=== PATIENT | female | born 1960 | race American Indian/Alaskan Native ===

== ENCOUNTER 2024-07-17 09:10 | Outpatient (CLI) | payer MEDICAID ==
[~2024-07-17 09:10] MED LIST: DIPH25CA83 PO; METH4TAB81 PO; PRED10TA PO
== END 2024-07-17 23:59 | disposition home or self-care (01) ==
LOC: RAD 09:10
PROVIDERS: ATTEND Family Medicine
DX: N94.89 Other specified conditions associated with female genital organs and menstrual cycle (principal); Z90.721 Acquired absence of ovaries, unilateral
CPT/HCPCS: 76856